=== PATIENT | male | born 1985 | race Caucasian/White ===

== ENCOUNTER 2023-04-29 10:38 | Outpatient (REF) | payer OTHER, SELFPAY ==
[2023-04-29 14:17] LABS: MANUAL DIFF FLAG NO
[2023-04-29 14:34] LABS: Basophils Absolute Auto 0.1 X10*3/uL (0.0-0.2); Basophils Percent Auto 0.9 % (0-2); Eosinophils Absolute Auto 0.2 X10*3/uL (0.0-0.4); Eosinophils Percent Auto 2.9 % (0-4); Hematocrit 41.9 % (42.0-52.0); Hemoglobin 13.8 g/dl (14.0-18.0); Imm Gran Abs Auto 0.02 X10*3/uL (0.00-0.03); Imm Gran Pct Auto 0.3 % (0.0-0.4); Lymphocytes Absolute Auto 2.7 X10*3/uL (1.2-4.9); Lymphocytes Percent Auto 34.2 % (20-40); Mean Corpuscular HGB Conc 32.9 g/dl (31.0-36.0); Mean Corpuscular Hemoglobin 30.1 pg (27.0-33.0); Mean Corpuscular Volume 91.3 fL (80.0-98.0); Mean Platelet Volume 10.3 fL (9.4-12.4); Monocytes Absolute Auto 0.6 X10*3/uL (0.1-1.2); Monocytes Percent Auto 7.4 % (2-11); Neutrophils Absolute Auto 4.3 x10*3/uL (2.0-8.3); Neutrophils Percent Auto 54.3 % (45-73); Platelet Count 379 X10*3/uL (160-400); Red Blood Count 4.59 X10*6/uL (4.60-5.80); Red Cell Distribution Width 13.1 % (11.0-16.0); White Blood Count 7.9 X10*3/uL (4.8-10.8)
[2023-04-29 16:20] LABS: Alanine Aminotransferase 27 U/L (0-40); Albumin Level 4.8 g/dL (3.5-5.0); Alkaline Phosphatase 54 U/L (39-117); Aspartate Amino Transferase 26 U/L (5-37); Bilirubin Direct 0.1 mg/dL (0.0-0.5); Bilirubin Total 0.5 mg/dL (0.0-1.0); Total Protein 7.9 g/dL (6.5-8.0)
[2023-04-29 16:25] LABS: TSH reflex Free T4 0.57 uIU/mL (0.32-4.0)
[2023-05-04 07:13] LABS: Gliadin Deamidated IgA Ab <1.0 U/mL; Gliadin Deamidated IgG Ab <1.0 U/mL; Transglutaminase Ab IgG <1.0 U/mL; Transglutaminase IgA <1.0 U/mL
[2023-05-04 11:18] LABS: Immunoglobulin A 172 mg/dL (47-310)
== END 2023-04-29 10:39 | disposition home or self-care (01) ==
LOC: CF 10:38
PROVIDERS: Visit Provider Internal Medicine
DX: R74.8 Abnormal levels of other serum enzymes (principal); K59.1 Functional diarrhea; E78.00 Pure hypercholesterolemia, unspecified
CPT/HCPCS: 36415; 80076; 82784; 84443; 85025; 86231; 86258; 86364; 87177; 87209

== ENCOUNTER 2023-05-05 11:43 | Outpatient (REF) | payer OTHER, SELFPAY ==
[2023-05-05 15:22] LABS: Cholesterol 199 mg/dL; HDL Cholesterol 39 mg/dL; LDL Cholesterol Calculated 122 mg/dl; Triglycerides 193 mg/dL
== END 2023-05-05 11:44 | disposition home or self-care (01) ==
LOC: HO.CHCLDS 11:43
PROVIDERS: Visit Provider Internal Medicine
DX: E78.00 Pure hypercholesterolemia, unspecified (principal)
CPT/HCPCS: 36415; 80061

== ENCOUNTER 2023-07-09 16:21 | Outpatient (REF) | payer OTHER, SELFPAY ==
[2023-07-10 03:35] LABS: CT PCR NOT DETECTED (Not Detect.); NG PCR NOT DETECTED (Not Detect.)
[2023-07-10 08:10] LABS: Syphilis Screen Nonreactive (Nonreactive)
[2023-07-10 08:41] LABS: ~HepC Num1 0.12 S/CO (0.00-0.79); ~Hepatitis C Antibody Nonreactive (Nonreactive)
[2023-07-14 16:28] LABS: HIV RNA PCR Qn Copies Not Detected Copies/mL; HIV RNA PCR Qn Log Copies Not Detected Log cps/mL
== END 2023-07-09 16:22 | disposition home or self-care (01) ==
LOC: HO.CHCLDS 16:21
PROVIDERS: Visit Provider Internal Medicine
DX: A64 Unspecified sexually transmitted disease (principal); Z20.2 Contact with and (suspected) exposure to infections with a predominantly sexual mode of transmission
CPT/HCPCS: 0353U; 86780; 86803; 87536; 87900

== ENCOUNTER 2023-10-29 13:57 | Outpatient (AMB) | payer OTHER, SELFPAY ==
--- NOTE | 2023-10-29 14:07 | A.OFFVIS_ITS ---
Intake Vital Signs 10/29/23 14:09 Height 5 ft 9 in Weight 174 lb 2.643 oz BMI 25.7 BP 126/81 Blood Pressure Location Lt brachial Position Sitting Pulse 72 Intake Visit Reasons: epigastric pain and diarrhea. Intake Note: Andrew presents in the office as a new patient for epigastric pains and diarrhea. CC: Pains in the stomach and he has loose stools more so than diarrhea. In the umbilical region and epigastric region. It is usually a dull pain followed by nausea. Allergies fluoxetine [Fluoxetine] Allergy (Mild, Unverified 07/05/20 15:37) HIVES Medication List - Last Reconciled 10/29/23 by Ana Reilly PA-C diazepam 5 mg PO TID PRN esomeprazole magnesium (Nexium) 40 mg PO DAILY lamotrigine 75 mg PO DAILY lurasidone 20 mg PO DAILY sertraline 200 mg PO DAILY ubidecarenone-omega 3-vit E 25-150-200 mg-mg-unit (Co W-25-[id number] E-Fish Oil) 1 cap PO DAILY HPI HPI Comments History of Present Illness Details 38-year-old male referred with functiona l diarrhea, abdominal cramping and epigastric pain. He is currently taking PPI for acid reflux-dose has been increased -symptoms not completely resolved He says stools are not really diarrhea but they are loose, having sal one a day or every other day-pain above umbilicus-radiates to right upper quadrant Appetite is good He has no nausea, vomiting hematemesis, hematochezia fever or chills Lissy 2016/2017 Note family history colon cancer or IBD PFSH Surgical History Hx of cholecystectomy Social History (Updated 10/29/23 @ 14:19 by Ana Reilly PA-C) Alcohol intake: current Alcohol intake frequency: does not drink Patient Tobacco Use Status: Never used Tobacco Substance Use Type: Marijuana Current occupational status: disabled Review of Systems Const All systems reviewed & are unremarkable except as noted in HPI and below Denies chills, Denies fever(s) and Denies weight loss Card Denies chest pain GI Reports abdominal pain, Denies bloating, Denies hematochezia, Reports heartburn, Reports loose stools, Denies nausea and Denies vomiting Physical Exam Vital Signs: Last Vital Signs Pulse 72 10/29/23 14:09 BP 126/81 10/29/23 14:09 BMI result Body Mass Index 25.7 Const General: cooperative, healthy appearing, comfortable and no acute distress Limitations: no limitations Eyes Sclerae: sclerae normal Resp Effort & Inspection: normal respiratory effort and able to speak in complete sentences Auscultation: clear to auscultation bilaterally, no rales, no rhonchi and no wheezes Cardio Rhythm: regular rhythm Heart sounds: S1 normal heart sound present and S2 normal heart sound present Skin General skin exam: no rashes or lesions noted and other (Multiply tattooed) Extrem General: Yes full ROM Psych Appearance: grossly normal and well kempt Mental Status: mental status grossly normal Speech and movement: Normal speech and movement present and Clear speech present Affect: normal affect Attitude: cooperative Thought process: Normal thought process present Thought content: Normal thought content present Insight: Good insight present (Psych) Judgement: Good judgement present (Psych) Results Reviewed Results Reviewed: 04/2023-celiac markers negative Assessment & Plan Assessment & Plan (1) Chronic diarrhea: Comment: Loose stool-no diarrhea Code(s): K52.9 - Noninfective gastroenteritis and colitis, unspecified Plan: Fiber (2) Acid reflux: Code(s): K21.9 - Gastro-esophageal reflux disease without esophagitis Plan: Discontinue Nexium for 2 weeks-may take Carafate or tums Submit stool H pylori Reflux precautions (3) Abdominal pain: Comment: Unable to appreciate physical exam s/p lissy- Code(s): R10.9 - Unspecified abdominal pain Plan: Abdominal ultrasound, comment CBD Plan H pylori if positive treat ss/p lissy-Abdominal ultrasound further assess abdominal pain comment CBD Orders: Orders US abdomen complete Today R10.9 - Unspecified abdominal pain Comprehensive Met. Panel Today K58.9 - Irritable bowel syndrome without diarrhea H pylori Ag Stool 2 Weeks A04.8 - Other specified bacterial intestinal infections Complete Blood Count Auto Diff Today K52.9 - Noninfective gastroenteritis and colitis, unspecified Ferritin Today D64.9 - Anemia, unspecified IRON PROFILE Today K52.9 - Noninfective gastroenteritis and colitis, unspecified Medications: New sucralfate 1 g (10 mL) PO QIDACHS 420 mL 0RF reflux 4 weeks calcium polycarbophil (Fiber Laxative (calcium polycarbophil)) 1,250 mg (2 x 625 mg) PO DAILY 60 tabs 3RF 30 days Patient Instructions: Will test H pylori-if positive will treat Will discontinue PPI for 2 weeks may take Carafate in the interim Abdominal ultrasound High-fiber diet Fiber supplement Update lab CBC CMP Encouraged to call questions or concerns Coding Level of Care Code New Pt Level 3 (02435) Diagnoses Chronic diarrhea K52.9 Acid reflux K21.9 Abdominal pain R10.9 Time Spent (min) 30
[2023-10-29 14:09] VITALS: BP 126/81; PULSE 72; BMI 25.7
== END 2023-10-29 14:40 | disposition home or self-care (01) ==
PROVIDERS: PCP Internal Medicine; Visit Provider Physician Assistant
DX: K52.9 Noninfective gastroenteritis and colitis, unspecified (principal); K21.9 Gastro-esophageal reflux disease without esophagitis; R10.9 Unspecified abdominal pain
CPT/HCPCS: 99203

== ENCOUNTER 2023-10-29 13:57 | Outpatient (REF) | payer OTHER, SELFPAY ==
[2023-10-29 14:57] LABS: MANUAL DIFF FLAG NO
[2023-10-29 15:27] LABS: Basophils Absolute Auto 0.1 X10*3/uL (0.0-0.2); Basophils Percent Auto 0.6 % (0-2); Eosinophils Absolute Auto 0.2 X10*3/uL (0.0-0.4); Eosinophils Percent Auto 1.2 % (0-4); Hematocrit 44.2 % (42.0-52.0); Hemoglobin 14.4 g/dl (14.0-18.0); Imm Gran Pct Auto 0.6 % (0.0-0.4); Lymphocytes Absolute Auto 3.4 X10*3/uL (1.2-4.9); Lymphocytes Percent Auto 20.7 % (20-40); Mean Corpuscular HGB Conc 32.6 g/dl (31.0-36.0); Mean Corpuscular Hemoglobin 29.6 pg (27.0-33.0); Mean Corpuscular Volume 90.8 fL (80.0-98.0); Mean Platelet Volume 9.9 fL (9.4-12.4); Monocytes Absolute Auto 0.9 X10*3/uL (0.1-1.2); Monocytes Percent Auto 5.2 % (2-11); Neutrophils Absolute Auto 11.8 x10*3/uL (2.0-8.3); Neutrophils Percent Auto 71.7 % (45-73); Platelet Count 391 X10*3/uL (160-400); Red Blood Count 4.87 X10*6/uL (4.60-5.80); Red Cell Distribution Width 13.4 % (11.0-16.0); White Blood Count 16.5 X10*3/uL (4.8-10.8)
[2023-10-29 16:10] LABS: Alanine Aminotransferase 30 U/L (0-40); Albumin Level 5.1 g/dL (3.5-5.0); Alkaline Phosphatase 51 U/L (39-117); Anion Gap 14 (12-20); Aspartate Amino Transferase 26 U/L (5-37); Bilirubin Total 0.3 mg/dL (0.0-1.0); Blood Urea Nitrogen 9 mg/dL (9-16); Calcium 10.5 mg/dL (8.4-10.2); Carbon Dioxide 29 mmol/L (22-29); Chloride 106 mmol/L (96-108); Estimated Glomerular Filt Rate > 60; Glucose Random 96 mg/dL (60-115); Iron 86 mcg/dL (45-160); Percent Iron Saturation 21 % (15-50); Potassium 4.3 mmol/L (3.3-5.1); Sodium 145 mmol/L (135-145); Total Iron Binding Capacity 403 mcg/dL (228-428); Total Protein 8.5 g/dL (6.5-8.0); Unsaturated Iron Binding 317 ug/dL
[2023-10-29 16:28] LABS: Ferritin 107 ng/mL (20-250)
== END 2023-10-29 13:58 | disposition home or self-care (01) ==
LOC: HO.LAB 13:57
PROVIDERS: PCP Internal Medicine; Visit Provider Physician Assistant
DX: K52.9 Noninfective gastroenteritis and colitis, unspecified (principal); K21.9 Gastro-esophageal reflux disease without esophagitis; D64.9 Anemia, unspecified; R10.13 Epigastric pain
CPT/HCPCS: 36415; 80053; 82728; 83540; 85025; 99202

== ENCOUNTER 2023-11-13 13:49 | Outpatient (REF) | payer OTHER, SELFPAY | END 2023-11-13 13:50 | disposition home or self-care (01) | LOC: HO.LNP 13:49 | PROVIDERS: Visit Provider Physician Assistant | DX: A04.8 Other specified bacterial intestinal infections (principal) | CPT/HCPCS: 87338 ==

== ENCOUNTER 2023-11-25 09:44 | Outpatient (REF) | payer OTHER, SELFPAY ==
--- NOTE | ~2023-11-25 | US_ITS ---
EXAMINATION: US ABDOMEN COMPLETE CLINICAL INFORMATION: Unspecified abdominal pain. Status-post cholecystectomy. Please comment on CBD. COMPARISON: None available. TECHNIQUE: Real-time imaging of the abdominal viscera. FINDINGS: PANCREAS: Normal. ABDOMINAL AORTA: The proximal, mid, and distal segments are normal in caliber. INFERIOR VENA CAVA: Visualized portions are normal. LIVER: The liver is normal in size. The liver contour is normal. There is diffuse increased liver parenchymal echogenicity. No focal hepatic lesion. There is no intrahepatic biliary duct dilatation seen. GALLBLADDER: Surgically absent. COMMON BILE DUCT: Normal in caliber measuring 0.5 cm in diameter. RIGHT KIDNEY: There is an extrarenal pelvis, without sofía hydronephrosis. No renal calculi or focal parenchymal lesions. The kidney measures 12.6 cm in maximum dimension. LEFT KIDNEY: Normal. No hydronephrosis. No renal calculi or focal parenchymal lesions. The kidney measures 12.9 cm in maximum dimension. SPLEEN: Normal. The spleen measures 12.8 cm in maximum dimension. FREE FLUID: None. US/US abdomen complete IMPRESSION: 1. There is generalized increase in hepatic echotexture, consistent with fatty infiltration or hepatocellular disease. Please correlate clinically. No focal hepatic mass or intrahepatic biliary dilatation is seen. 2. The gallbladder is surgically absent.
== END 2023-11-25 09:45 | disposition home or self-care (01) ==
LOC: HO.HMGCX 09:44
PROVIDERS: PCP Internal Medicine; Visit Provider Physician Assistant
DX: R10.9 Unspecified abdominal pain (principal)
CPT/HCPCS: 76700

== ENCOUNTER 2023-12-24 13:38 | Outpatient (AMB) | payer OTHER, SELFPAY ==
--- NOTE | 2023-12-24 13:53 | MHC.OFFVIS ---
Intake Vital Signs 12/24/23 13:56 Height 5 ft 9 in Weight 176 lb 5.917 oz BMI 26.0 BP 123/75 Blood Pressure Location Lt brachial Position Sitting Pulse 70 Intake Visit Reasons: 8 week follow up Intake Note: Andrew presents in the office as a 8 week follow up. CC: Carafate makes him feel a lot better but he states that he still has the same sour feeling in his stomach. 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 Allergies fluoxetine [Fluoxetine] Allergy (Mild, Unverified 12/24/23 13:56) HIVES Medication List - Last Reconciled 12/24/23 by Ana Reilly PA-C calcium polycarbophil (Fiber Laxative (calcium polycarbophil)) 1,250 mg (2 x 625 mg) PO DAILY 30 days diazepam 5 mg PO TID PRN esomeprazole magnesium (Nexium) 40 mg PO DAILY lamotrigine 75 mg PO DAILY lurasidone 20 mg PO DAILY sertraline 200 mg PO DAILY ubidecarenone-omega 3-vit E 25-150-200 mg-mg-unit (Co L-37-Azypcof E-Fish Oil) 1 cap PO DAILY HPI HPI Comments History of Present Illness Details Seen October 2023 38-year-old with diarrhea, abdomina l cramping and epi gastric pain. He was taking PPI fo r acid reflux-dose has been increase d -symptoms not co mpletely resolved- give him trial of Carafate prior to having H pylori te sting-Carafate gav e him good relief. However he never started esomepraz ole-complaints of occasional sour st omach/heartburn St ools were loose- now completely nor mal-he has not had any further issue s He had labs reve aling elevated whi te count we had sp scar with him by ph one in which he wa s having no sympto ms-he did say he l ittle dehydrated h owever no other co mplaints no pain stool for H pylor is negative He is here with his girl friend he says he overall feels quit e well PFSH Surgical History Hx of cholecystectomy Social History Alcohol intake: current Alcohol intake frequency: does not drink Patient Tobacco Use Status: Never used Tobacco Substance Use Type: Marijuana Current occupational status: disabled Review of Systems Const All systems reviewed & are unremarkable except as noted in HPI and below Card Denies chest pain and Denies dyspnea Resp Denies dyspnea GI Denies abdominal pain, Denies bloating, Denies hematochezia, Denies loose stools, Denies nausea and Denies vomiting Physical Exam Vital Signs: Last Vital Signs Pulse 70 12/24/23 13:56 BP 123/75 12/24/23 13:56 BMI result Body Mass Index 26.0 Const General: cooperative, healthy appearing, comfortable and no acute distress Orientation/consciousness: patient oriented x3 Eyes Sclerae: sclerae normal Resp Effort & Inspection: normal respiratory effort and able to speak in complete sentences Auscultation: clear to auscultation bilaterally Neuro General: patient oriented x3 Extrem General: Yes full ROM Psych Appearance: grossly normal and well kempt Mental Status: mental status grossly normal Speech and movement: Normal speech and movement present Affect: normal affect Attitude: cooperative Thought process: Normal thought process present Thought content: Normal thought content present Insight: Good insight present (Psych) Judgement: Good judgement present (Psych) Assessment & Plan Assessment & Plan (1) Acid reflux: Code(s): K21.9 - Gastro-esophageal reflux disease without esophagitis Plan: Begin back on esomeprazole 40 mg-we will follow up with progress (2) Chronic diarrhea: Comment: Symptoms completely resolved Code(s): K52.9 - Noninfective gastroenteritis and colitis, unspecified Plan: No diarrhea (3) Elevated white blood cell count: Code(s): D72.829 - Elevated white blood cell count, unspecified Plan: Update CBC to assess WBC Orders: Orders Comprehensive Met. Panel Today D72.829 - Elevated white blood cell count, unspecified, R10.9 - Unspecified abdominal pain Protein Electrophoresis,Ran Ur Today E88.09 - Other disorders of plasma-protein metabolism, not elsewhere classified Complete Blood Count Auto Diff Today D72.829 - Elevated white blood cell count, unspecified Medications: New esomeprazole magnesium (Nexium) 40 mg PO TID 30 days 30 caps 5RF Patient Instructions: Pleasant 38-year-old male seen with acid reflux abdominal pain symptoms pretty much resolved Intermittent heartburn Will start back on esomeprazole daily. Reflux precautions He will call progress any concerns Otherwise will see him back in 3 months if all goes well may follow back with PCP Coding Level of Care Code Est Pt Level 3 (08353) Diagnoses Acid reflux K21.9 Chronic diarrhea K52.9 Elevated white blood cell count D72.829 Time Spent (min) 20
[2023-12-24 13:56] VITALS: BP 123/75; PULSE 70; BMI 26.0
== END 2023-12-24 14:28 | disposition home or self-care (01) ==
PROVIDERS: PCP Internal Medicine; Visit Provider Physician Assistant
DX: K21.9 Gastro-esophageal reflux disease without esophagitis (principal); K52.9 Noninfective gastroenteritis and colitis, unspecified; D72.829 Elevated white blood cell count, unspecified
CPT/HCPCS: 99213

== ENCOUNTER → 2023-12-24 13:38 | Outpatient (BNVA) | payer OTHER, SELFPAY | PROVIDERS: PCP Internal Medicine; Visit Provider Physician Assistant | DX: K21.9 Gastro-esophageal reflux disease without esophagitis (principal); K52.9 Noninfective gastroenteritis and colitis, unspecified; D72.829 Elevated white blood cell count, unspecified | CPT/HCPCS: 99212 ==

== ENCOUNTER 2023-12-30 11:06 | Outpatient (REF) | payer OTHER, SELFPAY ==
[2023-12-30 14:18] LABS: MANUAL DIFF FLAG NO
[2023-12-30 14:23] LABS: Basophils Absolute Auto 0.1 X10*3/uL (0.0-0.2); Basophils Percent Auto 1.1 % (0-2); Eosinophils Absolute Auto 0.3 X10*3/uL (0.0-0.4); Eosinophils Percent Auto 3.4 % (0-4); Hematocrit 42.8 % (42.0-52.0); Hemoglobin 14.1 g/dl (14.0-18.0); Imm Gran Abs Auto 0.06 X10*3/uL (0.00-0.03); Imm Gran Pct Auto 0.7 % (0.0-0.4); Lymphocytes Absolute Auto 3.2 X10*3/uL (1.2-4.9); Lymphocytes Percent Auto 34.9 % (20-40); Mean Corpuscular HGB Conc 32.9 g/dl (31.0-36.0); Mean Corpuscular Hemoglobin 30.5 pg (27.0-33.0); Mean Corpuscular Volume 92.4 fL (80.0-98.0); Mean Platelet Volume 9.6 fL (9.4-12.4); Monocytes Absolute Auto 0.7 X10*3/uL (0.1-1.2); Neutrophils Absolute Auto 4.7 x10*3/uL (2.0-8.3); Neutrophils Percent Auto 51.9 % (45-73); Platelet Count 376 X10*3/uL (160-400); Red Blood Count 4.63 X10*6/uL (4.60-5.80); Red Cell Distribution Width 13.5 % (11.0-16.0); White Blood Count 9.1 X10*3/uL (4.8-10.8)
[2023-12-30 15:16] LABS: Cholesterol 279 mg/dL (<200); HDL Cholesterol 47 mg/dL (>40); LDL Cholesterol Calculated 179 mg/dL (<100); Triglycerides 265 mg/dL (<150)
== END 2023-12-30 11:07 | disposition home or self-care (01) ==
LOC: HO.CHCLDS 11:06
PROVIDERS: Visit Provider Internal Medicine
DX: D72.828 Other elevated white blood cell count (principal); E78.00 Pure hypercholesterolemia, unspecified
CPT/HCPCS: 36415; 80061; 85025

== ENCOUNTER 2024-06-01 09:41 | Outpatient (REF) | payer OTHER, SELFPAY ==
[2024-06-01 14:27] LABS: MANUAL DIFF FLAG NO
[2024-06-01 14:34] LABS: Basophils Absolute Auto 0.1 X10*3/uL (0.0-0.2); Basophils Percent Auto 0.9 % (0-2); Eosinophils Absolute Auto 0.4 X10*3/uL (0.0-0.4); Eosinophils Percent Auto 3.9 % (0-4); Hematocrit 40.4 % (42.0-52.0); Hemoglobin 13.6 g/dl (14.0-18.0); Imm Gran Abs Auto 0.06 X10*3/uL (0.00-0.03); Imm Gran Pct Auto 0.6 % (0.0-0.4); Lymphocytes Absolute Auto 3.7 X10*3/uL (1.2-4.9); Lymphocytes Percent Auto 34.5 % (20-40); Mean Corpuscular HGB Conc 33.7 g/dl (31.0-36.0); Mean Corpuscular Hemoglobin 30.9 pg (27.0-33.0); Mean Corpuscular Volume 91.8 fL (80.0-98.0); Mean Platelet Volume 9.8 fL (9.4-12.4); Monocytes Absolute Auto 0.7 X10*3/uL (0.1-1.2); Monocytes Percent Auto 6.8 % (2-11); Neutrophils Absolute Auto 5.7 x10*3/uL (2.0-8.3); Neutrophils Percent Auto 53.3 % (45-73); Platelet Count 395 X10*3/uL (160-400); Red Cell Distribution Width 13.2 % (11.0-16.0); White Blood Count 10.7 X10*3/uL (4.8-10.8)
[2024-06-01 14:47] LABS: Alanine Aminotransferase 34 U/L (0-40); Albumin Level 4.8 g/dL (3.5-5.0); Alkaline Phosphatase 45 U/L (39-117); Anion Gap 15 (12-20); Aspartate Amino Transferase 28 U/L (5-37); Bilirubin Total 0.4 mg/dL (0.0-1.0); Blood Urea Nitrogen 6 mg/dL (9-16); Calcium 10.2 mg/dL (8.4-10.2); Carbon Dioxide 24 mmol/L (22-29); Chloride 104 mmol/L (96-108); Cholesterol 263 mg/dL (<200); Estimated Glomerular Filt Rate > 60; Glucose Random 109 mg/dL (60-115); HDL Cholesterol 37 mg/dL (>40); Potassium 3.9 mmol/L (3.3-5.1); Sodium 139 mmol/L (135-145); Total Protein 7.7 g/dL (6.5-8.0); Triglycerides 400 mg/dL (<150)
[2024-06-02 05:20] LABS: HBc Num1 0.14 S/CO (0.00-0.79); Hepatitis B Core Antibody Nonreactive (Nonreactive); ~Hepatitis B Surface Antibody NONREACTIVE (Nonreactive)
== END 2024-06-01 09:42 | disposition home or self-care (01) ==
LOC: HO.CHCLDS 09:41
PROVIDERS: Visit Provider Internal Medicine
DX: D72.828 Other elevated white blood cell count (principal); E78.00 Pure hypercholesterolemia, unspecified; R74.8 Abnormal levels of other serum enzymes
CPT/HCPCS: 36415; 80053; 80061; 85025; 86704; 86706

== ENCOUNTER 2024-09-01 14:23 | Outpatient (REF) | payer OTHER, SELFPAY ==
[2024-09-01 17:45] LABS: MANUAL DIFF FLAG NO
[2024-09-01 17:59] LABS: Basophils Absolute Auto 0.1 X10*3/uL (0.0-0.2); Eosinophils Absolute Auto 0.3 X10*3/uL (0.0-0.4); Eosinophils Percent Auto 3.4 % (0-4); Hematocrit 42.4 % (42.0-52.0); Hemoglobin 14.3 g/dl (14.0-18.0); Imm Gran Abs Auto 0.03 X10*3/uL (0.00-0.03); Imm Gran Pct Auto 0.3 % (0.0-0.4); Lymphocytes Absolute Auto 3.5 X10*3/uL (1.2-4.9); Lymphocytes Percent Auto 38.3 % (20-40); Mean Corpuscular HGB Conc 33.7 g/dl (31.0-36.0); Mean Corpuscular Hemoglobin 30.7 pg (27.0-33.0); Mean Platelet Volume 10.1 fL (9.4-12.4); Monocytes Absolute Auto 0.7 X10*3/uL (0.1-1.2); Monocytes Percent Auto 7.2 % (2-11); Neutrophils Absolute Auto 4.5 x10*3/uL (2.0-8.3); Neutrophils Percent Auto 49.8 % (45-73); Platelet Count 424 X10*3/uL (160-400); Red Blood Count 4.66 X10*6/uL (4.60-5.80); Red Cell Distribution Width 13.2 % (11.0-16.0)
[2024-09-01 18:12] LABS: Cholesterol 286 mg/dL (<200); HDL Cholesterol 43 mg/dL (>40); LDL Cholesterol Calculated 217 mg/dL (<100); Triglycerides 134 mg/dL (<150)
== END 2024-09-01 14:24 | disposition home or self-care (01) ==
LOC: HO.CHCLDS 14:23
PROVIDERS: Visit Provider Internal Medicine
DX: D72.828 Other elevated white blood cell count (principal); E78.00 Pure hypercholesterolemia, unspecified
CPT/HCPCS: 36415; 80061; 85025

== ENCOUNTER 2025-04-10 09:22 | Outpatient (REF) | payer OTHER, SELFPAY ==
--- OUTSIDE RECORDS SUMMARY | 2025-04-10 10:13 | XMS_ITS | Encounter Summary ---
Author Organization [employer] Address [address] [address] Care Team Providers Care Office Support Specialist Name Role Phone Antony Alvarado MD Primary Care Provider [phone] Reason for Visit * Reason Onset Date Comments Med Refill 09/07/2024 Encounter Details Date Type Department Care Team ([facility] st Contact Info) Description 09/07/2024 Refill [facility] [address] [place] [address] Antony Alvarado MD [address] [place] [address] Social History Tobacco Use Types Packs/Day Years Used Date Smoking Tobacco: Never Passive Smoke Exposure: Never Smokeless Tobacco: Never Alcohol Use Standard Drinks/Week Comments Defer 0 (1 standard drink = 0.6 oz pur e alcohol) Alcohol Answer Date Recorded Q1: How often do you have a drink containing alc ohol? 1 09/01/2024 Q2: How many drinks containi ng alcohol do you have on a typical day when you are drinking? 0 09/01/2024 Q3: How often do you have six or more drinks on one occasion? 1 09/01/2024 Depression Answer Date Recorded Patient Health Questionnaire-9 Score 1 05/30/2024 Patient Health Questionnaire-9 Score 1 05/30/2024 Last PHQ-9: Questionnaire Data Not on file 0 05/30/2024 Housing Stability Answer Date Recorded What is your housing situation today? I have steven wheat 12/22/[address] you li ve. Do you have problems with any of the following? None of the above 12/22/2023 Food Insecurity Answer Date Recorded Within the past 12 months, y ou worried that your food would run out before you got money to buy more: Never True 12/22/2023 Within the past 12 months,th e food you bought just didn't last and you didn't have enough money to get more: Never True 02/2024 Transportation Answer Date Recorded In the past 12 months, has l ack of transportation kept you from medical appts, meetings, work or from getting things needed for daily living? No 12/22/2023 Utilities Answer Date Recorded In the past 12 months, has t he electric, gas, oil or water company threatened to shut off services in your home? No 12/22/2023 Depression Answer Date Recorded Patient Health Questionnaire-2 Score 0 05/30/2024 Sex and Gender Information Value Date Recorded Sex Assigned at Male 08/18/2022 10:27 AM EDT Legal Sex Male 10:27 AM EDT Gender Identity Male 10/24/2022 11:05 AM EST Sexual Orientation Choose not to disclose 2021 10:27 AM EDT documented as of this encounter Plan of Treatment Upcoming Encounters Date Type Department Care Team (Late st Contact Info) Description 04/11/2025 3:15 PM EDT Office Visit [facility] [address] [place] [address] Antony Alvarado MD [address] [place] [address] documented as of this encounter Visit Diagnoses Not on filedocumented in this encounter Additional Health Concerns Assessment Noted Time PHQ-9 Depression Total Score: 1 05/30/20 24 2:59 PM EDT documented as of this encounter Care Teams Office Support Specialist Relationship Specialty Start Date End Date Antony Alvarado MD [address] [place] [address] PCP - General Internal Medicine 09/16/21 documented as of this encounter
[2025-04-10 14:15] LABS: Alanine Aminotransferase 43 U/L (0-40); Albumin Level 4.9 g/dL (3.5-5.0); Alkaline Phosphatase 38 U/L (39-117); Anion Gap 12 (12-20); Aspartate Amino Transferase 31 U/L (5-37); Bilirubin Total 0.2 mg/dL (0.0-1.0); Blood Urea Nitrogen 10 mg/dL (9-16); Calcium 9.7 mg/dL (8.4-10.2); Carbon Dioxide 26 mmol/L (22-29); Chloride 108 mmol/L (96-108); Cholesterol 268 mg/dL (<200); Estimated Glomerular Filt Rate > 60; Glucose Random 108 mg/dL (60-115); HDL Cholesterol 41 mg/dL (>40); LDL Cholesterol Calculated 188 mg/dL (<100); Potassium 4.2 mmol/L (3.3-5.1); Sodium 142 mmol/L (135-145); Total Protein 7.6 g/dL (6.5-8.0); Triglycerides 197 mg/dL (<150)
== END 2025-04-10 09:23 | disposition home or self-care (01) ==
LOC: HO.CHCLDS 09:22
PROVIDERS: Visit Provider Internal Medicine
DX: E78.00 Pure hypercholesterolemia, unspecified (principal)
CPT/HCPCS: 36415; 80053; 80061; 84443